=== PATIENT | female | born 1975 | race Two or more races ===

== ENCOUNTER 2018-06-18 14:23 | Emergency (ER) | payer MEDICAID, OTHER ==
[2018-06-18 14:50] VITALS: BP 155/93
== END 2018-06-18 16:34 | disposition home or self-care (01) ==
LOC: ER 14:26
DX: H66.92 Otitis media, unspecified, left ear (principal); J01.90 Acute sinusitis, unspecified
CPT/HCPCS: 70450

== ENCOUNTER 2022-04-25 10:59 | Emergency (ER) | payer MEDICAID ==
[~2022-04-25] VITALS: Ht 157.5 cm; Wt 68.9 kg
[2022-04-25] MEDS ORDERED: LIDOCAINE 1% HCL (LOCAL ANESTH.) INJ 20ML MDV IJ ONE (11:30)
[2022-04-25 11:33] VITALS: BP 129/92
[2022-04-25] MEDS ORDERED: CEPH-510 PO (12:13)
[2022-04-25] MEDS ORDERED: NAPR500T31 PO (12:13)
[2022-04-27] MEDS ORDERED: IBUP600T27 PO (12:41)
== END 2022-04-25 12:17 | disposition home or self-care (01) ==
LOC: ER 10:59
DX: S91.312A Laceration without foreign body, left foot, initial encounter (principal); W22.8XXA Striking against or struck by other objects, initial encounter; Y93.01 Activity, walking, marching and hiking; Y92.89 Other specified places as the place of occurrence of the external cause; Y99.8 Other external cause status
CPT/HCPCS: 12004